=== PATIENT | female | born 1995 | race Caucasian/White ===

== ENCOUNTER → 2017-01-07 00:19 | Emergency (ER) | payer OTHER ==
[2017-01-07 01:55] LABS: Alcohol 162 mg/dL (<10)
--- NOTE | 2017-01-07 02:25 | ED ---
Leticia Del Angel Rebecca, scribed for Toy Ambriz MD on 01/07/17 at 0044 . Substance Abuse/Use - HPI Summary HPI Summary: Pt is a 21 y/o F BIBA who presents to ED with EtOH intoxication. Per EMS, she was accompanied by friends the entire night and had drank "a lot" of vodka. They noted vomiting 1x and dry heaving since then. Level 5 caveat due to EtOH intoxication. 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, Other: - dry heaving PMH/Surg Hx/FS Hx/Imm Hx Previously Healthy: No - Unkonwn - Level 5 caveat due to EtOH intoxication Infectious Disease History: Denies: Traveled Outside the [place] in Last 30 Days - Family History Known Family History: Positive: Unknown - Unable to obtain due to EtOH intoxication - Level 5 caveat - Social History Occupation: Student Alcohol Use: Presents to ED with EtOH intoxication Review of Systems 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, Other - dry heaving Positive: Other - EtOH intoxication All Other Systems Reviewed And Are Negative: No Physical Exam Triage Information Reviewed: Yes Vital Signs Reviewed: Yes Appearance: Positive: Well-Appearing, No Pain Distress Skin: Positive: Warm Head/Face: Positive: Normal Head/Face Inspection Eyes: Positive: JOSE CARLOS ENT: Positive: Hearing grossly normal Neck: Positive: Supple Respiratory/Lung Sounds: Positive: Breath Sounds Present Cardiovascular: Positive: RRR Abdomen Description: Positive: Nontender, Soft Bowel Sounds: Positive: Present Musculoskeletal: Positive: Strength/ROM Intact Neurological: Positive: Sensory/Motor Intact Psychiatric: Positive: Affect/Mood Appropriate Re-Evaluation - Re-Evaluation First Eval Change: Improved Course/Dx - Course Assessment/Plan: Pt is a 21 y/o F BIBA who presents to ED with EtOH intoxication. Per EMS, she was accompanied by friends the entire night and had drank "a lot" of vodka. They noted vomiting 1x and dry heaving since then. Level 5 caveat due to EtOH intoxication. Serum alcohol of 162. Pt will be D/C to home with Dx of alcohol intoxication and a follow up with her PCP. - Diagnoses Provider Diagnoses: Alcohol intoxication Discharge - Discharge Plan Condition: Improved Disposition: HOME Patient Education Materials: Alcohol Intoxication (ED) Referrals: [facility] [Medical Doctor] - 3 Days Additional Instructions: Return to ED for any returning or worsening symptoms. The documentation as recorded by the Leticia juares Rebecca accurately reflects the service I personally performed and the decisions made by me, Toy Ambriz MD.
[2017-01-07 02:53] VITALS: BP 92/58
== END | disposition home or self-care (01) ==
LOC: ED 00:19
DX: F10.129 Alcohol abuse with intoxication, unspecified (principal); Y90.6 Blood alcohol level of 120-199 mg/100 ml
CPT/HCPCS: 36415; 80320; 84702; 99283; G0480